=== PATIENT | female | born 1975 | race Hispanic/Latino ===

== ENCOUNTER → 2019-10-15 | Outpatient (CLI) | payer BC ==
[~2019-10-15] MED LIST: BUPROPION HCL100 MG PO; GABAPENTIN100 MG PO; IOPAMIDOL 370 MG/ML 200 ML INFUS..BTL INJ ONE; METHOTREXATE2.5 MG PO; PLAQUENIL200 MG PO; ROBAXIN-750750 MG PO; SODIUM CHLORIDE 0.9% 50ML 50 ML ONE; ULTRAM50 MG PO
--- NOTE | 2019-10-15 09:18 | Diagnostic Imaging Report ---
EXAM: CT Abdomen and Pelvis WITH intravenous contrast INDICATION: Abdominal pain COMPARISON: None. TECHNIQUE: Abdomen and pelvis were scanned utilizing a multidetector helical scanner from the lung base to the pubic symphysis after administration of IV contrast. Coronal and sagittal reformations were obtained. Routine protocol was performed. Scan was performed during portal venous phase. IV CONTRAST: 100mL of Isovue 370 ORAL CONTRAST: Water RADIATION DOSE: Total DLP: 370 mGy*cm Dose modulation, iterative reconstruction, and/or weight based adjustment of the mA/kV was utilized to reduce the radiation dose to as low as reasonably achievable. FINDINGS: LOWER THORAX: Normal. HEPATOBILIARY: Mild diffuse hepatic steatosis. Hyperdense versus enhancing right liver lesions measure up to 2.7 cm and 2.1 cm (axial image 23). No biliary ductal dilation. Unremarkable gallbladder. SPLEEN: No splenomegaly. PANCREAS: No focal masses or ductal dilatation. ADRENALS: No adrenal nodules. KIDNEYS/URETERS: No hydronephrosis, stones, or solid mass lesions. PELVIC ORGANS/BLADDER: Bulky uterine fibroids. Cystic lesions centered in the pelvis are likely adnexal in origin and measure up to 4.5 cm (axial image 62) and 6.5 cm (axial image 55). PERITONEUM / RETROPERITONEUM: No free air or fluid. LYMPH NODES: No lymphadenopathy. VESSELS: Unremarkable. GI TRACT: No abnormal bowel thickening. No bowel obstruction. Normal appendix. BONES AND SOFT TISSUES: No acute osseous injury. No suspicious lytic or blastic lesions. IMPRESSION: Pelvic cystic lesions measure up to 4.5cm and 6.5cm and are likely adnexal. Recommend pelvic ultrasound for further evaluation. Bulky uterine fibroids. Mild diffuse hepatic steatosis. Enhancing right liver masses measure up to 2.7cm and 2.1cm. Recommend liver mass protocol CT or MRI for further evaluation. Signed by: Anton Stafford MD on 10/15/2019 9:14 AM
== END ==
LOC: CT 07:33
PROVIDERS: ATTEND Internal Medicine
DX: R10.0 Acute abdomen (principal)
CPT/HCPCS: 74177; Q9967

== ENCOUNTER → 2019-10-29 | Outpatient (CLI) | payer BC ==
[~2019-10-29] MED LIST changes: +GADOBENATE DIMEGLUMINE 1 ML IV ONE; -IOPAMIDOL 370 MG/ML 200 ML INFUS..BTL INJ ONE; +SODIUM CHLORIDE 0.9% 100 ML ONE; -SODIUM CHLORIDE 0.9% 50ML 50 ML ONE
--- NOTE | 2019-10-29 14:27 | Diagnostic Imaging Report ---
MRI ABDOMEN WOW HISTORY: Liver lesions on recent CT. ^ABDOMEN PAIN COMPARISON: CT abdomen and pelvis 10/15/2019 TECHNIQUE: MRI of the abdomen was performed with and without gadolinium. Multiplanar, multisequence images were obtained before and following intravenous injection of intravenous gadolinium contrast. FINDINGS: Hepatobiliary Findings: Contour and signal intensity: Normal contour. No steatosis Focal lesions : The hyperenhancing lesions in segment 6/7 are only faintly visualized on today's exam, measuring approximately 29 and 20 mm, unchanged, hyperenhancing on arterial, venous and late venous images, with extremely faint T2 hyperintensity, faint signal on DWI but no signal on ADC. Suggestion of additional similar but smaller foci in segment 4, (dynamic postcontrast image 104. 108), up to 17 mm, were also present on prior CT. Portal vein: Patent. Arterial anatomy: Conventional. Gallbladder and bile ducts: Unremarkable. Spleen: Borderline enlarged. Varices: None. Ascites: None. Additional Findings: Lung bases: Unremarkable. Pancreas: Unremarkable. Adrenals: Unremarkable. Kidneys and ureters: Subcentimeter right renal cyst. Otherwise unremarkable. Bowel: Unremarkable. Lymph nodes: Unremarkable. Peritoneum: Trace pelvic free fluid, nonspecific and possibly physiologic Vessels: Circumaortic left renal vein Abdominal wall: Nonspecific T2 hypointensity, possibly injection granuloma, in the left gluteal adiposity Bones: Unremarkable. Visualized pelvis: Complex 8.5 x 5.5 cm left adnexal mass, only within the [id number] on coronal series, formerly cystic with septations and mural nodularity. IMPRESSION: 1. Faintly hyperenhancing lesions in segment 6/7 and segment 4 of the liver, at least 4 of them, most likely hepatic adenomas, not changed in size from 10/15/2019. Do not have the typical appearance of metastasis, HCC or hemangiomas. Follow-up in 3-6 months, with [facility]. 2. 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 Requires special events director-onc consult and dedicated pelvic MRI if not already performed elsewhere. Signed by: Mj Don MD on 10/29/2019 2:24 PM
== END ==
LOC: MRI 10:49
PROVIDERS: ATTEND Internal Medicine
DX: R10.0 Acute abdomen (principal); K76.9 Liver disease, unspecified
CPT/HCPCS: 74183; J7050

== ENCOUNTER → 2020-01-16 | Day surgery (SDC) | payer BC, OTHER ==
[2020-01-13 13:01] LABS: BASOPHILS % 0.5 % (0.0-1.0); EOSINOPHILS # (AUTO) 0.3 (0.0-0.4); EOSINOPHILS % 3.6 % (0.0-6.0); HEMATOCRIT 40.7 % (34.2-44.1); LYMPHOCYTES # (AUTO) 1.9 (1.0-3.2); LYMPHOCYTES % 24.6 % (18.0-39.1); MEAN CORPUSCULAR HEMOGLOBIN 31.8 pg (28-32); MEAN CORPUSCULAR HGB CONC 34.4 g/dL (31-35); MEAN CORPUSCULAR VOLUME 92.5 fL (81-99); MONOCYTES # (AUTO) 0.5 (0.2-0.8); MONOCYTES % 6.5 % (4.4-11.3); NEUTROPHILS # (AUTO) 4.9 (2.1-6.9); NEUTROPHILS % 64.5 % (38.7-80.0); PLATELET COUNT 176 x10e3/uL (140-360); RED CELL DISTRIBUTION WIDTH 11.5 % (11.7-14.4)
[~2020-01-16] MED LIST changes: +ACETAMINOPHEN 1000 MG/100 ML 100 ML IV ONE; +BUPIVACAINE 0.25% 30ML SDV INJ ONE; +DESFLURANE 240 ML BTL INH ONE; +DIAZEPAM5 MG PO; +FAMOTIDINE 20 MG/2 ML VIAL IV ONE; +FENTANYL CITRATE/PF 100MCG/2 ML INJ ONE; -GADOBENATE DIMEGLUMINE 1 ML IV ONE; +KETOROLAC TROMETHAMINE 30 MG/ML VIAL ONE; +LIDOCAINE 1% W/EPINEPHRINE 20 ML VIAL ONE; +LIDOCAINE HCL 2% LOCAL INJ 5 ML SDV VIAL INJ ONE; +MIDAZOLAM HCL 2 MG/2 ML VIAL ONE; +MYSOLINE50 MG PO; +ONDANSETRON HCL INJ 2MG/ML 2ML 2 MG/ML VIAL ONE; +PHENYTOIN SODI100 MG PO; +PROPOFOL IV EMULSION 10 MG/ML 20 ML VIAL ONE; +ROCURONIUM BROMIDE 10 MG/ML 5ML VIAL IV ONE; -SODIUM CHLORIDE 0.9% 100 ML ONE; +SODIUM CHLORIDE 0.9% 50ML 50 ML ONE
[2020-01-16 15:30] VITALS: BP 101/63
== END | disposition home or self-care (01) ==
LOC: OR 10:10
PROVIDERS: ATTEND Obstetrics & Gynecology
DX: N83.202 Unspecified ovarian cyst, left side (principal); Z01.810 Encounter for preprocedural cardiovascular examination; Z01.812 Encounter for preprocedural laboratory examination; Z11.59 Encounter for screening for other viral diseases; K76.0 Fatty (change of) liver, not elsewhere classified; M32.9 Systemic lupus erythematosus, unspecified; Z72.0 Tobacco use
CPT/HCPCS: 36415; 58662; 84702; 85025; 88307; 93005; J0131; J1885; J2001; J2250; J2405; J2704; J3010; U0002; 88304

== ENCOUNTER → 2021-06-10 | Outpatient (CLI) | payer BC ==
[~2021-06-10] MED LIST changes: -ACETAMINOPHEN 1000 MG/100 ML 100 ML IV ONE; -BUPIVACAINE 0.25% 30ML SDV INJ ONE; -DESFLURANE 240 ML BTL INH ONE; -FAMOTIDINE 20 MG/2 ML VIAL IV ONE; -FENTANYL CITRATE/PF 100MCG/2 ML INJ ONE; +GADOBENATE DIMEGLUMINE 1 ML IV ONE; -KETOROLAC TROMETHAMINE 30 MG/ML VIAL ONE; -LIDOCAINE 1% W/EPINEPHRINE 20 ML VIAL ONE; -LIDOCAINE HCL 2% LOCAL INJ 5 ML SDV VIAL INJ ONE; -MIDAZOLAM HCL 2 MG/2 ML VIAL ONE; -ONDANSETRON HCL INJ 2MG/ML 2ML 2 MG/ML VIAL ONE; -PROPOFOL IV EMULSION 10 MG/ML 20 ML VIAL ONE; -ROCURONIUM BROMIDE 10 MG/ML 5ML VIAL IV ONE
== END ==
LOC: MRI 08:53
PROVIDERS: ATTEND Nurse Practitioner Adult Health
DX: N83.291 Other ovarian cyst, right side (principal); K76.9 Liver disease, unspecified
CPT/HCPCS: 72197

== ENCOUNTER → 2021-06-23 | Outpatient (CLI) | payer BC | LOC: MRI 08:19 | PROVIDERS: ATTEND Internal Medicine | DX: N83.291 Other ovarian cyst, right side (principal) ==

== ENCOUNTER 2022-05-11 20:51 | Emergency (ER) | payer BC, OTHER ==
[~2022-05-11] VITALS: Ht 152.4 cm; Wt 60.8 kg
[~2022-05-11 20:51] MED LIST changes: -GADOBENATE DIMEGLUMINE 1 ML IV ONE; -SODIUM CHLORIDE 0.9% 50ML 50 ML ONE
[2022-05-11] MEDS ORDERED: ONDANSETRON HCL INJ 2MG/ML 2ML 2 MG/ML VIAL ONE ×2 (21:15→22:45)
[2022-05-11] MEDS ORDERED: KETOROLAC TROMETHAMINE 30 MG/ML VIAL ONE (21:15)
[2022-05-11 21:16] LABS: BASOPHILS # (AUTO) 0.1 (0.0-0.1); BASOPHILS % 0.9 % (0.0-1.0); EOSINOPHILS # (AUTO) 0.2 (0.0-0.4); EOSINOPHILS % 3.2 % (0.0-6.0); HEMATOCRIT 41.9 % (34.2-44.1); HEMOGLOBIN 13.7 g/dL (12.0-16.0); LYMPHOCYTES # (AUTO) 3.3 (1.0-3.2); LYMPHOCYTES % 50.2 % (18.0-39.1); MEAN CORPUSCULAR HEMOGLOBIN 30.9 pg (28-32); MEAN CORPUSCULAR HGB CONC 32.7 g/dL (31-35); MEAN CORPUSCULAR VOLUME 94.4 fL (81-99); MONOCYTES # (AUTO) 0.4 (0.2-0.8); MONOCYTES % 6.5 % (4.4-11.3); NEUTROPHILS # (AUTO) 2.5 (2.1-6.9); PLATELET COUNT 215 x10e3/uL (140-360); RED BLOOD COUNT 4.44 x10e6/uL (3.6-5.1); RED CELL DISTRIBUTION WIDTH 11.1 % (11.7-14.4)
[2022-05-11 21:36] LABS: ALANINE AMINOTRANSFERASE 24 IU/L (0-55); ALBUMIN 4.1 g/dL (3.5-5.0); ALBUMIN/GLOBULIN RATIO 1.3 (0.8-2.0); ALKALINE PHOSPHATASE 146 IU/L (40-150); ANION GAP 15.4 mmol/L (8-16); BLOOD UREA NITROGEN 15 mg/dL (7-26); BUN/CREATININE RATIO 19 (6-25); CALCIUM 9.1 mg/dL (8.4-10.2); CARBON DIOXIDE 24 mmol/L (22-29); CHLORIDE 107 mmol/L (98-107); CREATINE KINASE 213 IU/L (29-168); GLUCOSE 138 mg/dL (74-118); POTASSIUM 3.4 mmol/L (3.5-5.1); SODIUM 143 mmol/L (136-145)
[2022-05-11] MEDS ORDERED: SODIUM CHLORIDE 0.9% 100 ML ONE (22:06)
[2022-05-11] MEDS ORDERED: IOPAMIDOL 370 MG/ML 100 ML INFUS..BTL INJ ONE ×2 (22:06→22:07)
[2022-05-11] MEDS ORDERED: ONDANSETRON HCL INJ 2MG/ML 2ML 2 MG/ML VIAL IV STA (22:37)
[2022-05-11] MEDS ORDERED: Morphine 4mg INJECTION 4 MG/ML INJ IV ONE (22:45)
[2022-05-11] MEDS ORDERED: Morphine 4mg INJECTION 4 MG/ML INJ ONE (22:45)
[2022-05-11 23:43] VITALS: BP 110/69
== END 2022-05-11 23:50 | disposition home or self-care (01) ==
LOC: ER 21:13
DX: R10.12 Left upper quadrant pain (principal); R29.810 Facial weakness; D25.9 Leiomyoma of uterus, unspecified; M32.9 Systemic lupus erythematosus, unspecified; D17.71 Benign lipomatous neoplasm of kidney
CPT/HCPCS: 36415; 70496; 70498; 74177; 80053; 80320; 82550; 82553; 84484; 84702; 85025; 99284; J1885; J2270; J2405; J7050; Q9967